=== PATIENT | female | born 1935 | race Two or more races ===

== ENCOUNTER 2018-04-28 15:06 | Inpatient (IN) | payer MEDICAID, MEDICARE ==
[~2018-04-28] VITALS: Ht 154.9 cm; Wt 69.9 kg
[2018-04-28 15:35] LABS: BASOPHILS # (AUTO) 0.1 K/uL (0.0-8.0); BASOPHILS % (AUTO) 1.3 % (0.0-2.0); EOSINOPHILS # (AUTO) 0.4 K/uL (0.0-0.7); EOSINOPHILS % (AUTO) 3.8 % (0.0-7.0); HEMATOCRIT 33.6 % (31.2-41.9); HEMOGLOBIN 11.8 g/dL (10.9-14.3); MEAN CORPUSCULAR HGB CONC 35 g/dL (32.3-35.6); MONOCYTES # (AUTO) 0.9 K/uL (2.0-10.0); MONOCYTES % (AUTO) 9.4 % (0.0-11.0); NEUTROPHILS # (AUTO) 6.2 K/uL (1.8-8.9); NEUTROPHILS % (AUTO) 64.5 % (38.5-71.5); PLATELET COUNT (AUTO) 324 K/uL (179-408); RED BLOOD CELL COUNT(AUTO) 3.58 MIL/uL (3.63-4.92); WHITE BLOOD COUNT (AUTO) 9.6 K/uL (3.8-11.8)
[2018-04-28] MEDS ORDERED: DULCOLAX PR (15:37)
[2018-04-28] MEDS ORDERED: ATOR40TA PO (15:37)
[2018-04-28] MEDS ORDERED: INSU100I26 SQ (15:37)
[2018-04-28] MEDS ORDERED: AMLO10TA2 PO (15:37)
[2018-04-28] MEDS ORDERED: MAG30ORA PO (15:37)
[2018-04-28] MEDS ORDERED: DEXT15DR6 EACHEYE (15:37)
[2018-04-28] MEDS ORDERED: MAGN400O6 PO (15:37)
[2018-04-28] MEDS ORDERED: METF10004 PO (15:37)
[2018-04-28] MEDS ORDERED: GLIP10TA11 PO (15:37)
[2018-04-28] MEDS ORDERED: ALBU8HFA4 INH (15:37)
[2018-04-28] MEDS ORDERED: POLY17PO4 PO (15:37)
[2018-04-28] MEDS ORDERED: [UNRECOGNIZED DRUG - OTHER] (15:37)
[2018-04-28] MEDS ORDERED: ASPI81TA31 PO (15:37)
[2018-04-28] MEDS ORDERED: CLOP75TA15 PO (15:37)
[2018-04-28] MEDS ORDERED: RAME8TAB15 PO (15:37)
[2018-04-28] MEDS ORDERED: ACET-2154 PO (15:37)
[2018-04-28] MEDS ORDERED: NA P133E RC (15:37)
[2018-04-28 15:44] LABS: CARBON DIOXIDE 24 mmol/L (21-32); CHLORIDE 105 mmol/L (98-107); CREATININE 0.9 mg/dL (0.6-1.3); GLUCOSE 118 mg/dL (74-106); POTASSIUM 4.1 mmol/L (3.5-5.1); UREA NITROGEN, BLOOD 21 mg/dL (7-18)
--- NOTE | 2018-04-28 15:47 | NUR ---
Call placed to Evens Choudhary LCSW, for PET evaluation, eta 45 min.
[2018-04-28 15:50] LABS: ALANINE AMINOTRANSFERASE 56 U/L (14-59); ALKALINE PHOSPHATASE 120 U/L (50-136); ASPARTATE AMINOTRANSFERASE 21 U/L (15-37); BILIRUBIN,DIRECT 0.1 mg/dL (0.0-0.2); BILIRUBIN,TOTAL 0.6 mg/dL (0.2-1.0); TOTAL PROTEIN, SERUM 7.4 g/dL (6.4-8.2)
[2018-04-28 15:52] LABS: ACETAMINOPHEN < 2.0 ug/mL (10-30)
[2018-04-28 15:57] LABS: ETHANOL < 3 MG/DL (0-0)
--- NOTE | 2018-04-28 16:55 | NUR ---
MARITZA GUTIERREZ EVALUATED THE PT.
--- NOTE | 2018-04-28 17:16 | NUR ---
REPORT WAS GIVEN TO RN [facility]. PT WAS TRANSFERED TO ROOM #141A.
[2018-04-28] MEDS ORDERED: MAGNESIUM HYDROXIDE 30 ML LIQUID UDC PO PRN (18:00)
[2018-04-28] MEDS ORDERED: LORAZEPAM 1 MG TABLET PO PRN (18:00)
[2018-04-28] MEDS ORDERED: TEMAZEPAM 7.5 MG CAPSULE PO PRN (18:00)
[2018-04-28] MEDS ORDERED: ACETAMINOPHEN 325 MG TABLET PO PRN (18:00)
[2018-04-28] MEDS ORDERED: MAG HYDROX/AL HYDROX/SIMETH 30 ML LIQUID UDC PO PRN (18:00)
--- NOTE | 2018-04-28 19:32 | NUR ---
GPS/RN- ADMISSION NOTE Patient admitted on [facility], per 5150 patient was having visual hallucinations believing that people were entering her room and confusion unable to recall her medications and insulin injection having already given. Patient is oriented to self, verbalized seeing a man at this time at her facility, stating wanted to hurt her, denies seeing man at this time cooperative and compliant continue to monitor advised of hold and patient rights. continue to monitor patient is alert to self only, confused to place and time. patient verbalized she is , he is ill too. I don't recall how many children I have and I forget their names. I Worked into the [employer] for 20 years. I don't recall what I worked in after that, patient is mongolian speaking only. patient is calm, verbalized she did see a man in her room but he came in and walked out.
[2018-04-28 22:00] VITALS: BP 130/70
[2018-04-29 07:30] VITALS: BP 119/71
--- NOTE | 2018-04-29 07:30 | NUR ---
RECEIVED AN 82 Y/O FEMALE PT, ALERT,SELF ORIENTED, PT IS SITTING ON CHAIR IN HALLWAY, SEEMS PLEASANT PT WALKING STEADY USING A WALKER. TO CONTINUE MONITORING.
[2018-04-29] MEDS ORDERED: POLYVINYL ALCOHOL OPHT DROPS 15 ML BOTTLE EACHEYE PRN (14:30)
[2018-04-29] MEDS ORDERED: DEXTROSE 50% 50 ML DISP.SYRIN IV PRN (14:30)
[2018-04-29] MEDS ORDERED: ALBUTEROL SULFATE 8 GM HFA.AER.AD INH PRN (14:30)
[2018-04-29] MEDS ORDERED: ALBUTEROL SULFATE 2.5 MG/3 ML NEBU NEB PRN (14:45)
[2018-04-29 15:24] LABS: *BILIRUBIN,URIN NEGATIVE (NEGATIVE); *BLOOD, URINE NEGATIVE (NEGATIVE); *CLARITY,URINE CLEAR (CLEAR); *COLOR,URINE YELLOW (YELLOW); *KETONES,URINE TRACE (NEGATIVE); *PROTEIN,URINE NEGATIVE (NEGATIVE); *UROBILINOGEN,URINE 0.2 E.U./dl (NORMAL); LEUKOCYTE ESTERASE ,URINE NEGATIVE (NEGATIVE); NITRITE, URINE NEGATIVE (NEGATIVE); PH,URINE 6.5 (5.0-8.0); UGLUCOSE TRACE (NEGATIVE)
[2018-04-29 15:32] LABS: MUCUS,URINE MANY /LPF (0-FEW); RBC,URINE 0-3 /HPF (0-3); SQUAMOUS EPITHELIAL CELL,UR FEW /HPF (NONE SEEN)
[2018-04-29 16:14] VITALS: BP 141/66
[2018-04-29] MEDS: BLOOD SUGAR DIAGNOSTIC 1 EACH STRIP VI SCH ×2 (16:23→20:43)
[2018-04-29] MEDS ORDERED: Medication Not On Formulary EA (Metformin Hcl 1,000 MG) PO SCH (16:30)
[2018-04-29] MEDS: INSULIN REGULAR, HUMAN 300 UNIT/3 ML VIAL SQ PRN ×2 (16:35→20:52)
[2018-04-29] MEDS: glipiZIDE 10 MG TABLET PO SCH (17:06)
[2018-04-29] MEDS: METFORMIN HCL 500 MG TABLET PO SCH (18:32)
--- NOTE | 2018-04-29 19:15 | NUR ---
PATIENT REPORT GIVEN TO PRESIDENT [employer]GONOMIC CONSULTINGEMISSIONS TESTING TECHNICIAN.
[2018-04-29] MEDS: ATORVASTATIN 40 MG TABLET PO SCH (20:04)
[2018-04-29] MEDS: MIRALAX 17 GM POWD.PACK PO SCH (20:04)
[2018-04-29 20:08] VITALS: BP 140/78
[2018-04-29] MEDS: RIVASTIGMINE TARTRATE 1.5 MG CAPSULE PO SCH (20:46)
[2018-04-29] MEDS: risperiDONE 0.25 MG TABLET PO SCH (20:46)
[2018-04-29] MEDS: INSULIN GLARGINE,HUM 300 UNITS/3 ML CARTRIDGE SQ SCH (20:47)
[2018-04-30] MEDS: BLOOD SUGAR DIAGNOSTIC 1 EACH STRIP VI SCH ×5 (06:35→20:53)
--- NOTE | 2018-04-30 07:00 | NUR ---
RECEIVED REPORT FROM TREE TAPPING LABORER NURSE PATIENT IN ROOM ASLEEP NO ACUTE DISTRESS NOTED. AZERI SPEAKING ONLY. NO SI NOTED AT THIS TIME. AMBULATORY WTIH FWW. SKIN INTACT. NO COMPLAINTS OF PAIN/DISCOMFORT AT THIS TIME. COMFORT MEASURES PROVIDED. WILL CONTINUE TO MONITOR CLOSELY.
[2018-04-30 07:30] VITALS: BP 139/69
[2018-04-30] MEDS: INSULIN REGULAR, HUMAN 300 UNIT/3 ML VIAL SQ PRN ×5 (07:45→21:11)
[2018-04-30] MEDS: ASPIRIN 81 MG TAB.CHEW PO SCH (08:01)
[2018-04-30] MEDS: risperiDONE 0.25 MG TABLET PO SCH ×2 (08:01→20:44)
[2018-04-30] MEDS: METFORMIN HCL 500 MG TABLET PO SCH ×2 (08:01→17:26)
[2018-04-30] MEDS: CLOPIDOGREL 75 MG TABLET PO SCH (08:01)
[2018-04-30] MEDS: AMLODIPINE 10 MG TABLET PO SCH (08:02)
[2018-04-30] MEDS: glipiZIDE 10 MG TABLET PO SCH ×2 (08:03→17:26)
[2018-04-30] MEDS: RIVASTIGMINE TARTRATE 1.5 MG CAPSULE PO SCH ×2 (08:03→20:44)
[2018-04-30 10:42] LABS: *AMPHETAMINE, URINE NEGATIVE (NEGATIVE); *BARBITURATE, URINE NEGATIVE (NEGATIVE); *CANNABINOID, URINE NEGATIVE (NEGATIVE); *COCCAINE, URINE NEGATIVE (NEGATIVE); *OPIATE, URINE NEGATIVE (NEGATIVE); *PHENCYCLIDINE SCREEN,URINE NEGATIVE (NEGATIVE)
[2018-04-30 16:23] VITALS: BP 169/73
--- NOTE | 2018-04-30 20:00 | NUR ---
RECEIVED PATIENT IN HER ROOM IN BED. SHE IS NOTED AWAKE CALM A/O X 2, SHE IS ABLE TO AMBULATE WITH THE AID OF A FWW WITH SLOW BUT STEADY GAIT AND ABLE TO MAKE HER NEEDS KNOWN. SHE IS NOTED FORGETFUL, DISORGANIZED, BLUNTED AFFECT, POOR INSIGHT AND JUDGMENT INTO THE REASON FOR HER ADMISSION TO [facility]. SHE DENIES SI/HI, DENIES HEARING VOICES OR SEEN THINGS. SHE CONTINUE COMPLIANT WITH MEDICATION REGIMENT, DIET AND PLAN OF CARE. SAFETY EMPHASIS, BED AT LOWEST POSITION WITH WHEELS LOCKED, ALARM ON AND FREQUENT HEAD CHECKS. WILL CONTINUE TO MONITOR CLOSELY.
[2018-04-30 20:28] VITALS: BP 140/66
[2018-04-30] MEDS: ATORVASTATIN 40 MG TABLET PO SCH (20:44)
[2018-04-30] MEDS: MIRALAX 17 GM POWD.PACK PO SCH (20:44)
[2018-04-30] MEDS: INSULIN GLARGINE,HUM 300 UNITS/3 ML CARTRIDGE SQ SCH (21:10)
[2018-05-01] MEDS: BLOOD SUGAR DIAGNOSTIC 1 EACH STRIP VI SCH ×4 (06:57→20:28)
[2018-05-01 07:30] VITALS: BP 148/64
[2018-05-01] MEDS: METFORMIN HCL 500 MG TABLET PO SCH ×2 (08:18→17:27)
[2018-05-01] MEDS: ASPIRIN 81 MG TAB.CHEW PO SCH (08:18)
[2018-05-01] MEDS: AMLODIPINE 10 MG TABLET PO SCH (08:18)
[2018-05-01] MEDS: CLOPIDOGREL 75 MG TABLET PO SCH (08:18)
[2018-05-01] MEDS: risperiDONE 0.25 MG TABLET PO SCH ×2 (08:18→20:02)
[2018-05-01] MEDS: RIVASTIGMINE TARTRATE 1.5 MG CAPSULE PO SCH ×2 (08:24→20:02)
[2018-05-01] MEDS: glipiZIDE 10 MG TABLET PO SCH ×2 (08:30→16:26)
[2018-05-01] MEDS: INSULIN REGULAR, HUMAN 300 UNIT/3 ML VIAL SQ PRN ×2 (12:15→17:29)
[2018-05-01 15:29] VITALS: BP 129/65
--- NOTE | 2018-05-01 15:46 | NUR ---
Initial Discharge Instructions: Patient currently lives at [facility] with her [[address], [place] [address]; ]. Patient reports she would like to return there upon discharge. Spoke with pt's son, Tom ([phone]) who is in agreement that patient will return to [facility] when ready. Spoke with Fara at the facility who states they will accept the patient back when she is ready for discharge. SW will continue to collaborate with pt, family, and MD regarding discharge planning. SW will form a safe and proper discharge plan.
--- NOTE | 2018-05-01 15:51 | NUR ---
SBAR report received this morning. Pt assessed, alert and oriented x1-2. Pt mood continues to be withdrawn, with blunt affect, and disorganized in appearance. Pt is reluctant but cooperative with routine medication administration and care. Refuses to participate with group, remaining isolated in room. Bed in locked and lowest position, with side rails upx2. Pt able to ambulate with FWW walker steadily. All comfort and safety needs met. Pt safety emphasized, and able to CFS, while expressing depression over having to stay here. Pt denies SI/HI/VH/AH at this time. Minimal interaction with staff including MD for re-evaluation. Will continue to monitor.
--- NOTE | 2018-05-01 16:03 | NUR ---
Firearms Report: ALON completed and submitted [employer] Firearms Report on 05/01/18 for 5250 GD certification.
[2018-05-01 19:30] VITALS: BP 123/78
[2018-05-01] MEDS: MIRALAX 17 GM POWD.PACK PO SCH (20:02)
[2018-05-01] MEDS: ATORVASTATIN 40 MG TABLET PO SCH (20:02)
[2018-05-01] MEDS: INSULIN GLARGINE,HUM 300 UNITS/3 ML CARTRIDGE SQ SCH (20:29)
[2018-05-02] MEDS: BLOOD SUGAR DIAGNOSTIC 1 EACH STRIP VI SCH ×4 (06:41→20:25)
[2018-05-02 07:30] VITALS: BP 145/77
[2018-05-02] MEDS: METFORMIN HCL 500 MG TABLET PO SCH ×2 (08:14→17:13)
[2018-05-02] MEDS: AMLODIPINE 10 MG TABLET PO SCH (08:14)
[2018-05-02] MEDS: CLOPIDOGREL 75 MG TABLET PO SCH (08:14)
[2018-05-02] MEDS: ASPIRIN 81 MG TAB.CHEW PO SCH (08:14)
[2018-05-02] MEDS: risperiDONE 0.25 MG TABLET PO SCH (08:14)
[2018-05-02] MEDS: glipiZIDE 10 MG TABLET PO SCH ×2 (08:19→17:13)
[2018-05-02] MEDS: RIVASTIGMINE TARTRATE 1.5 MG CAPSULE PO SCH ×2 (08:19→20:09)
[2018-05-02] MEDS: INSULIN REGULAR, HUMAN 300 UNIT/3 ML VIAL SQ PRN ×2 (11:43→20:29)
[2018-05-02 15:10] VITALS: BP 145/75
--- NOTE | 2018-05-02 17:20 | NUR ---
PT AGITATED AND STATING THAT SHE DOESN'T NEED INSULIN AT THIS TIME. BLOOD SUGAR 134. CONTINUE TO MONITOR PT FOR HYPER AND HYPO GLYCEMIA.
[2018-05-02 20:00] VITALS: BP 120/68
[2018-05-02] MEDS: risperiDONE 0.5 MG TABLET PO SCH (20:09)
[2018-05-02] MEDS: MIRALAX 17 GM POWD.PACK PO SCH (20:09)
[2018-05-02] MEDS: ATORVASTATIN 40 MG TABLET PO SCH (20:09)
[2018-05-02] MEDS: INSULIN GLARGINE,HUM 300 UNITS/3 ML CARTRIDGE SQ SCH (20:30)
[2018-05-03] MEDS: BLOOD SUGAR DIAGNOSTIC 1 EACH STRIP VI SCH ×4 (06:33→20:47)
[2018-05-03 07:30] VITALS: BP 116/65
[2018-05-03] MEDS: INSULIN REGULAR, HUMAN 300 UNIT/3 ML VIAL SQ PRN ×4 (07:40→20:50)
[2018-05-03] MEDS: glipiZIDE 10 MG TABLET PO SCH ×2 (07:42→16:29)
[2018-05-03] MEDS: CLOPIDOGREL 75 MG TABLET PO SCH (07:49)
[2018-05-03] MEDS: RIVASTIGMINE TARTRATE 1.5 MG CAPSULE PO SCH ×2 (07:49→20:20)
[2018-05-03] MEDS: ASPIRIN 81 MG TAB.CHEW PO SCH (07:49)
[2018-05-03] MEDS: AMLODIPINE 10 MG TABLET PO SCH (07:49)
[2018-05-03] MEDS: SERTRALINE HCL 50 MG TABLET PO SCH (07:50)
[2018-05-03] MEDS: risperiDONE 0.5 MG TABLET PO SCH ×2 (07:50→20:20)
[2018-05-03] MEDS: METFORMIN HCL 500 MG TABLET PO SCH ×2 (07:52→17:44)
[2018-05-03 09:07] LABS: BASOPHILS # (AUTO) 0.1 K/uL (0.0-8.0); BASOPHILS % (AUTO) 1.2 % (0.0-2.0); EOSINOPHILS # (AUTO) 0.3 K/uL (0.0-0.7); EOSINOPHILS % (AUTO) 3.7 % (0.0-7.0); HEMATOCRIT 33.7 % (31.2-41.9); HEMOGLOBIN 11.7 g/dL (10.9-14.3); LYMPHOCYTES # (AUTO) 1.7 K/uL (20.0-40.0); LYMPHOCYTES % (AUTO) 22.1 % (20.5-51.5); MEAN CORPUSCULAR HEMOGLOBIN 32.8 uug (24.7-32.8); MEAN CORPUSCULAR HGB CONC 35 g/dL (32.3-35.6); MEAN CORPUSCULAR VOLUME 94.1 fL (75.5-95.3); MONOCYTES # (AUTO) 0.6 K/uL (2.0-10.0); MONOCYTES % (AUTO) 7.5 % (0.0-11.0); NEUTROPHILS # (AUTO) 5.1 K/uL (1.8-8.9); NEUTROPHILS % (AUTO) 65.5 % (38.5-71.5); PLATELET COUNT (AUTO) 326 K/uL (179-408); RED BLOOD CELL COUNT(AUTO) 3.58 MIL/uL (3.63-4.92); WHITE BLOOD COUNT (AUTO) 7.8 K/uL (3.8-11.8)
[2018-05-03 09:20] LABS: ALANINE AMINOTRANSFERASE 46 U/L (14-59); ALKALINE PHOSPHATASE 109 U/L (50-136); ASPARTATE AMINOTRANSFERASE 20 U/L (15-37); BILIRUBIN,TOTAL 0.7 mg/dL (0.2-1.0); CARBON DIOXIDE 23 mmol/L (21-32); CHLORIDE 105 mmol/L (98-107); CREATININE 0.9 mg/dL (0.6-1.3); GLUCOSE 187 mg/dL (74-106); MAGNESIUM 1.4 mg/dL (1.8-2.4); PHOSPHOROUS 3.9 mg/dL (2.5-4.9); POTASSIUM 3.6 mmol/L (3.5-5.1); TOTAL PROTEIN, SERUM 7.3 g/dL (6.4-8.2); UREA NITROGEN, BLOOD 12 mg/dL (7-18)
[2018-05-03 09:27] LABS: THYROID STIMULATING HORMONE 8.651 mIU/mL (0.358-3.740)
[2018-05-03] MEDS ORDERED: MAGNESIUM OXIDE 400 MG TABLET PO ONE (10:30)
[2018-05-03 16:01] VITALS: BP 147/67
[2018-05-03 20:20] VITALS: BP 133/63
[2018-05-03] MEDS: ATORVASTATIN 40 MG TABLET PO SCH (20:20)
[2018-05-03] MEDS: MIRALAX 17 GM POWD.PACK PO SCH (20:20)
[2018-05-03] MEDS: INSULIN GLARGINE,HUM 300 UNITS/3 ML CARTRIDGE SQ SCH (20:51)
[2018-05-04] MEDS: BLOOD SUGAR DIAGNOSTIC 1 EACH STRIP VI SCH ×4 (06:40→20:04)
[2018-05-04] MEDS: LEVOTHYROXINE SODIUM 25 MCG TABLET PO SCH (06:40)
[2018-05-04 07:30] VITALS: BP 139/68
[2018-05-04] MEDS: risperiDONE 0.5 MG TABLET PO SCH ×2 (08:07→20:39)
[2018-05-04] MEDS: RIVASTIGMINE TARTRATE 1.5 MG CAPSULE PO SCH ×2 (08:07→20:39)
[2018-05-04] MEDS: AMLODIPINE 10 MG TABLET PO SCH (08:07)
[2018-05-04] MEDS: CLOPIDOGREL 75 MG TABLET PO SCH (08:08)
[2018-05-04] MEDS: SERTRALINE HCL 50 MG TABLET PO SCH (08:08)
[2018-05-04] MEDS: METFORMIN HCL 500 MG TABLET PO SCH ×2 (08:08→17:42)
[2018-05-04] MEDS: ASPIRIN 81 MG TAB.CHEW PO SCH (08:08)
[2018-05-04] MEDS: INSULIN REGULAR, HUMAN 300 UNIT/3 ML VIAL SQ PRN ×3 (08:13→17:27)
[2018-05-04] MEDS: glipiZIDE 10 MG TABLET PO SCH ×2 (08:21→17:38)
[2018-05-04] MEDS ORDERED: MAGNESIUM OXIDE 400 MG TABLET PO ONE (10:45)
[2018-05-04 16:00] VITALS: BP 126/59
[2018-05-04] MEDS: ATORVASTATIN 40 MG TABLET PO SCH (20:39)
[2018-05-04] MEDS: MIRALAX 17 GM POWD.PACK PO SCH (20:43)
[2018-05-04] MEDS: INSULIN GLARGINE,HUM 300 UNITS/3 ML CARTRIDGE SQ SCH (20:45)
--- NOTE | 2018-05-04 20:45 | NUR ---
blood sugar 93 mg/dl. held lantus HS sub-q dose.
[2018-05-04] MEDS ORDERED: MAGNESIUM OXIDE 400 MG TABLET PO SCH (21:00)
[2018-05-04 21:08] VITALS: BP 132/65
[2018-05-05] MEDS: LEVOTHYROXINE SODIUM 25 MCG TABLET PO SCH (06:01)
--- NOTE | 2018-05-05 06:22 | NUR ---
GPS: REMAIN CALM AND COOPERATIVE. DOMINICAN SPEAKING. SHOWERED THIS MORNING. SLEPT 8 HRS THROUGH THE NIGHT. NO BEHAVIOR ISSUE NOTED. CONTINUE PLAN OF CARE.
[2018-05-05] MEDS: BLOOD SUGAR DIAGNOSTIC 1 EACH STRIP VI SCH (06:31)
[2018-05-05 07:30] VITALS: BP 142/67
[2018-05-05] MEDS: INSULIN REGULAR, HUMAN 300 UNIT/3 ML VIAL SQ PRN (08:10)
[2018-05-05] MEDS: ASPIRIN 81 MG TAB.CHEW PO SCH (08:11)
[2018-05-05] MEDS: risperiDONE 0.5 MG TABLET PO SCH (08:11)
[2018-05-05] MEDS: glipiZIDE 10 MG TABLET PO SCH (08:11)
[2018-05-05] MEDS: CLOPIDOGREL 75 MG TABLET PO SCH (08:11)
[2018-05-05] MEDS: METFORMIN HCL 500 MG TABLET PO SCH (08:11)
[2018-05-05] MEDS: RIVASTIGMINE TARTRATE 1.5 MG CAPSULE PO SCH (08:12)
[2018-05-05] MEDS: SERTRALINE HCL 50 MG TABLET PO SCH (08:12)
[2018-05-05 08:13] VITALS: BP 142/67
[2018-05-05] MEDS: AMLODIPINE 10 MG TABLET PO SCH (08:13)
--- NOTE | 2018-05-05 08:30 | NUR ---
Discharge Note: Patient will be discharged back to [facility] [[address], [place] [address]; ] via private transportation at 11:30am. Spoke with Fara at the facility who has arranged transportation for this patient and states they are ready to accept the patient back today. Spoke with patient's son, Tom ([phone]) who is aware and agreeable with discharge plans. Patient is alert and oriented x2 and is cooperative with discharge plans. Patient will follow-up at the facility with Dr. Humphreys (Single Stayer Operator) and Dr. Cervantes (Psychiatrist).
--- NOTE | 2018-05-05 11:36 | NUR ---
GPS/RN- Patient picked up by facility transport, Giovanna Hines. Addendum: 05/05/18 at 1220 by SCOTT RODRIGUEZ RN patient provided with [place] and water during discharge.
== END 2018-05-05 11:30 | DRG 885 ==
LOC: ER 15:09 → GPS 17:22
PROVIDERS: ADMIT Psychiatry & Neurology Psychiatry; ATTEND Nurse Practitioner Acute Care
DX: F32.3 Major depressive disorder, single episode, severe with psychotic features (principal); K21.9 Gastro-esophageal reflux disease without esophagitis; E78.5 Hyperlipidemia, unspecified; E11.9 Type 2 diabetes mellitus without complications; Z79.4 Long term (current) use of insulin; G31.84 Mild cognitive impairment of uncertain or unknown etiology; I10 Essential (primary) hypertension; E83.42 Hypomagnesemia; E03.9 Hypothyroidism, unspecified; Z79.899 Other long term (current) drug therapy; Z79.82 Long term (current) use of aspirin; R26.2 Difficulty in walking, not elsewhere classified; R79.89 Other specified abnormal findings of blood chemistry; Z86.73 Personal history of transient ischemic attack (TIA), and cerebral infarction without residual deficits; I65.22 Occlusion and stenosis of left carotid artery
CPT/HCPCS: 36415; 71045; 74018; 80307; 83735; 84100; 84443; 85025; 87086; 93005; 97116; 97530; A4663; G0480; G0480-TC; J1815